=== PATIENT | male | born 1985 | race Hispanic/Latino ===

== ENCOUNTER 2017-06-22 16:56 | Emergency (ER) | payer SELFPAY ==
--- NOTE | 2017-06-22 19:28 | CT ---
CT ABDOMEN AND PELVIS WITHOUT CONTRAST: 06/22/17 Multiple axial tomograms obtained through the abdomen and pelvis without IV enhancement. HISTORY: Left flank pain. Lung bases are clear. Liver, spleen, and pancreas are unremarkable. Adrenal glands and kidneys are unremarkable. There is n o hydronephrosis. There is no evidence of urinary tract calculus. The urinary bladder is abnormal. There is soft tissue density in the floor of the bladder which measu res up to 3.7 cm. Considerations include a mucosal mass or a blood clot. Bowel loops are unremarkable. Prostate does not appear significantly enlarged. Osseous structures are unremarkable. IMPRESSION: 1. Soft tissue mass-like density in the floor of the bladder as described above. 2. No evidence of urinary tract calculus or hydronephrosis. Recommend urologic consultation. POS: [facility]
[2017-06-22 20:08] LABS: Bilirubin Negative (Negative); Blood, Urine Large (Negative); Protein, Urine (Dipstick) > or equal to 300 mg/dL (Neg-Trace)
[2017-06-22 20:12] LABS: Clarity Opaque (Clear)
[2017-06-22 20:16] LABS: Glucose, Urine (Dipstick) Unable to Interpret mg/dL (Negative); Leukocyte Unable to Interpret (Negative); Nitrite Unable to Interpret (Negative); Specific Gravity, Urine 1.015 (1.002-1.036); Urobilinogen UNABLE TO INTERPRET mg/dL (0.2-1.0)
[2017-06-22 20:17] LABS: pH, Urine 6.2 (5.0-9.0)
[2017-06-22] MEDS ORDERED: HYDROcodone/Acetaminophen 10/325 mg Tablet ONE (20:18)
[2017-06-22 20:20] LABS: RBC/HPF GREATER THAN 50-TNTC HPF (0-3)
[2017-06-22 20:22] LABS: Bacteria/HPF None Seen HPF (None Seen); Hyaline Casts/LPF NONE SEEN LPF (0-3 Hyaline); Squamous Epithelial 0-3 HPF (0-3)
== END 2017-06-22 21:09 | disposition home or self-care (01) ==
LOC: ERS 16:56
DX: R31.9 Hematuria, unspecified (principal); R33.9 Retention of urine, unspecified
CPT/HCPCS: 51702; 74176; 81003; 81015; 87086

== ENCOUNTER 2017-06-25 12:03 | Emergency (ER) | payer SELFPAY ==
[2017-06-25 14:16] LABS: #Eosinphils 0.4 thou/uL (0.0-0.7); #Lymphocytes 1.7 thou/uL (1.20-3.40); #Monocytes 0.5 thou/uL (0.11-0.59); #Neutrophils 5.8 thou/uL (1.40-6.50); %Basophils 0.6 % (0.0-1.0); %Eosinophils 4.4 % (0.0-10.0); %Lymphocytes 19.9 % (21.0-51.0); %Monocytes 6.2 % (0.0-10.0); Hemoglobin 14.3 g/dL (14.0-18.0); Mean Corpuscular HGB CONC 33.1 g/dL (32.0-36.0); Mean Corpuscular Hemoglobin 31.3 pg (27.0-31.0); Mean Corpuscular Volume 94.4 fl (80.0-94.0); Mean Platelet Volume 7.4 fL (7.4-10.4); Platelet Count 285 thou/uL (130-400); RBC Distribution Width 11.4 % (11.5-14.5); Red Blood Cell (RBC) Count 4.57 mill/uL (4.70-6.10); White Blood Cell (WBC) Count 8.4 thou/uL (4.8-10.8)
[2017-06-25 14:41] LABS: ALT (SGPT) 29 U/L (8-55); AST (SGOT) 27 U/L (5-34); Albumin 4.3 g/dL (3.5-5.0); Alkaline Phosphatase 66 U/L (40-150); Anion Gap 14 mmol/L (10-20); BUN (Urea Nitrogen) 14 mg/dL (8.9-20.6); Bilirubin, Total 0.3 mg/dL (0.2-1.2); CK (CPK) 101 U/L (30-200); Calc. Creatinine Clearance 0 mL/min (70-130); Calcium 9.1 mg/dL (7.8-10.44); Carbon Dioxide 26 mmol/L (22-29); Chloride 103 mmol/L (98-107); Estimated GFR-MDRD Greater than 90; Globulin 3.9 g/dL (2.4-3.5); Glucose 94 mg/dL (70-105); Potassium 4.2 mmol/L (3.5-5.1); Protein, Total 8.2 g/dL (6.0-8.3); Sodium 139 mmol/L (136-145)
== END 2017-06-25 15:04 | disposition home or self-care (01) ==
LOC: ERS 12:03
DX: T83.091A Other mechanical complication of indwelling urethral catheter, initial encounter (principal); N30.90 Cystitis, unspecified without hematuria
CPT/HCPCS: 36415; 80053; 82550; 85025; 99283

== ENCOUNTER 2017-06-26 02:05 | Emergency (ER) | payer SELFPAY ==
[2017-06-26 03:53] LABS: Bilirubin Negative (Negative); Blood, Urine Large (Negative); Clarity CLOUDY (Clear); Glucose, Urine (Dipstick) Negative (Negative); Leukocyte Small (Negative); Nitrite Positive (Negative); Protein, Urine (Dipstick) Trace mg/dL (Neg-Trace); Specific Gravity, Urine 1.029 (1.002-1.036); Urobilinogen 0.2 mg/dL (0.2-1.0); pH, Urine 6.5 (5.0-9.0)
[2017-06-26 03:56] LABS: Bacteria/HPF 4+ HPF (None Seen); Pathc Cast-AUWi Flag 1.27 (0-2.49)
[2017-06-26 04:00] LABS: Yeast-AUWi Flag 33.1 (0-25.0)
[2017-06-26 04:09] LABS: Hyaline Casts/LPF 0-3 HYALINE CAST LPF (0-3 Hyaline); Oval Fat Bodies/HPF None Seen HPF (None Seen); RBC/HPF 0-3 HPF (0-3); Renal Epithelial 0-3 HPF (0-3); Sperm/HPF None Seen HPF (None Seen); Transitional Epithelial NONE SEEN HPF (0-3); Trichomonas/HPF None Seen HPF (None Seen); Yeast-All Forms None Seen HPF (None Seen)
[2017-06-26] MEDS ORDERED: Ketorolac Tromethamine 60 MG/2 ML VIAL ONE (04:09)
== END 2017-06-26 05:12 | disposition home or self-care (01) ==
LOC: ERS 02:05
DX: N30.90 Cystitis, unspecified without hematuria (principal)
CPT/HCPCS: 51702; 81003; 81015; 87077; 87086; 87186; 96372; J1885